=== PATIENT | male | born 1995 | race Caucasian/White ===

== ENCOUNTER 2018-01-10 16:09 | Emergency (ER) | payer BC, OTHER ==
[2018-01-10 16:14] VITALS: BP 155/65; PULSE 98; TEMP 98.5; BMI 20.3
--- NOTE | 2018-01-10 16:23 | PDOC ---
History of Present Illness - General History Source: Patient Exam Limitations: No Limitations <Kaylyn Mello - Last Filed: 01/10/18 16:41> - General History Source: Patient Exam Limitations: No Limitations - History of Present Illness Initial Comments: 01/10/18 17:08 The patient is a 22-year-old male, with a significant past medical history of anxiety, ADHD, PVCs, who presents to the ED because the patient woke up today and his heart was racing. He reports drinking a significant amount of alcohol last night and states that he woke up this morning shaking and nauseous. he reports feeling disoriented and anxious. He denies experiencing these symptoms in the past after a night out drinking. He also reports having a headache this morning that has now resolved. He denies any recent drug use. The patient has been eating and drinking normally. The patient denies any fever, chills, vomiting, diarrhea, or abdominal pain. He denies any chest pain or shortness of breath. Allergies: NKA Surgical History: throat cyst removal Social History: Denies any tobacco or drug use. <Palmira De Leon - Last Filed: 01/10/18 17:12> - General Chief Complaint: Lightheaded Stated Complaint: LIGHTHEADED, NAUSEA, FEELS HEART RACING Time Seen by Provider: 01/10/18 16:12 Past History - Past Medical History Cardiac Disorders: Yes (PVC'S) COPD: No - Immunization History Td Vaccination: Yes - Suicide/Smoking/Psychosocial Hx Smoking Status: No Smoking History: Never smoked Have you smoked in the past 12 months: No Number of Cigarettes Smoked Daily: 0 Information on smoking cessation initiated: No Hx Alcohol Use: (social) Drug/Substance Use Hx: No <Kaylyn Mello - Last Filed: 01/10/18 16:41> <Palmira De Leon - Last Filed: 01/10/18 17:12> - Past Medical History Allergies/Adverse Reactions: Allergies Allergy/AdvReac Type Severity Reaction Status Date / Time No Known Allergies Allergy Verified 01/10/18 16:10 Home Medications: Ambulatory Orders Ondansetron HCl [Zofran] 4 mg PO BID PRN #6 tablet 01/10/18 Review of Systems - Review of Systems Able to Perform ROS?: Yes Comments:: 01/10/18 17:09 GENERAL/CONSTITUTIONAL: (+)Shaking, anxious. No fever or chills. No weakness. HEAD, EYES, EARS, NOSE AND THROAT: No change in vision. No ear pain or discharge. No sore throat. CARDIOVASCULAR: (+)palpitations. No chest pain or shortness of breath. RESPIRATORY: No cough, wheezing, or hemoptysis. GASTROINTESTINAL: (+)Nausea. No vomiting, diarrhea or constipation. GENITOURINARY: No dysuria, frequency, or change in urination. MUSCULOSKELETAL: No joint or muscle swelling or pain. No neck or back pain. SKIN: No rash NEUROLOGIC: No headache, vertigo, loss of consciousness, or change in strength/ sensation. ENDOCRINE: No increased thirst. No abnormal weight change. HEMATOLOGIC/LYMPHATIC: No anemia, easy bleeding, or history of blood clots. ALLERGIC/IMMUNOLOGIC: No hives or skin allergy. <Palmira De Leon - Last Filed: 01/10/18 17:12> *Physical Exam - Vital Signs Last Vital Signs Temp Pulse Resp BP Pulse Ox 98.5 F 98 H 18 155/65 98 01/10/18 16:10 01/10/18 16:10 01/10/18 16:10 01/10/18 16:10 01/10/18 16:10 <Kaylyn Mello - Last Filed: 01/10/18 16:41> - Vital Signs Last Vital Signs Temp Pulse Resp BP Pulse Ox 98.5 F 98 H 18 155/65 98 01/10/18 16:10 01/10/18 16:10 01/10/18 16:10 01/10/18 16:10 01/10/18 16:10 - Physical Exam Comments: 01/10/18 17:12 GENERAL: The patient is in no acute distress. HEAD: Normal with no signs of trauma. EYES: PERRLA, EOMI, sclera anicteric, conjunctiva clear. ENT: Ears normal, nares patent, oropharynx clear without exudates. Moist mucous membranes. NECK: Normal range of motion, supple without lymphadenopathy, JVD, or masses. LUNGS: Breath sounds equal, clear to auscultation bilaterally. No wheezes, and no crackles. HEART:Regular rate and rhythm, normal S1 and S2 without murmur, rub or gallop. ABDOMEN: Soft, nontender, normoactive bowel sounds. No guarding, no rebound. No masses palpable. EXTREMITIES: Normal range of motion, no edema. No clubbing or cyanosis. No erythema, or tenderness. NEUROLOGICAL: Cranial nerves II through XII grossly intact. Normal speech. No focal neurological deficits. MUSCULOSKELETAL: Back non-tender to palpation, no CVA tenderness SKIN: Warm, Dry, normal turgor, no rashes or lesions noted. <Palmira De Leon - Last Filed: 01/10/18 17:12> ED Treatment Course - Medications Given in the ED: ED Medications Discontinued Medications Generic Name Dose Route Start Last Admin Trade Name Junior PRN Reason Stop Dose Admin Ondansetron HCl 4 mg 01/10/18 16:35 01/10/18 16:39 Zofran - PO 01/10/18 16:36 4 mg ONCE ONE Administration <Palmira De Leon - Last Filed: 01/10/18 17:12> Medical Decision Making - Medical Decision Making 01/10/18 16:41 josey presents to the ER with his father due to nausea and feeling like his heart is racing He went out drinking last night Tells me that he drank a lot (unable to give an exact quantity, but states it was double digits) The awoke this am with a headache which has resolved He has noted nausea, no vomiting Tolerating foods and liquids He has had the sensation that his heart is racing and he feels anxious No chest pain On examination: Pt appears anxious RRR, no murmur Lungs are clear Will do EKG Will give zofran for nausea Will discharge to home WKGL SR, rate of 90 bpm, axis nml, intervals nml, QTc = 420ms No st elevations or depressions T wave flattening in aVL <Kaylyn Mello - Last Filed: 01/10/18 16:41> *DC/Admit/Observation/Transfer - Discharge Dispostion Decision to Admit order: No <Kaylyn Mello - Last Filed: 01/10/18 16:41> - Attestations Scribe Attestion: 01/10/18 17:12 Documentation prepared by Palmira De Leon, acting as medical equipment repairer for Kaylyn Mello MD. <Palmira De Leon - Last Filed: 01/10/18 17:12> Diagnosis at time of Disposition: Nausea - Discharge Dispostion Disposition: HOME Condition at time of disposition: Stable - Prescriptions Prescriptions: Ondansetron HCl [Zofran] 4 mg PO BID PRN #6 tablet PRN Reason: Nausea - Patient Instructions Printed Discharge Instructions: DI for Nausea -- Adult Additional Instructions: Thanks for coming in to the ER Please take medications for nausea only if you need it Please come back to the ER if you develop any new symptoms that concern you Stay hydrated
[2018-01-10] MEDS ORDERED: ONDANSETRON 4 MG TABLET PO ONE (16:35)
[2018-01-10] MEDS ORDERED: ONDANSETRON *ODT* 4 MG TABLET ONE (16:37)
--- NOTE | 2018-01-12 22:09 | EKG ---
Test Reason : Blood Pressure : / mmHG Vent. Rate : 090 BPM Atrial Rate : 090 BPM P-R Int : 154 ms QRS Dur : 090 ms QT Int : 344 ms P-R-T Axes : 077 082 065 degrees QTc Int : 420 ms NORMAL SINUS RHYTHM POSSIBLE LEFT ATRIAL ENLARGEMENT BORDERLINE ECG NO PREVIOUS ECGS AVAILABLE Confirmed by MARJAN MORSE, CHAYA ([id number]) on 01/12/2018 10:09:29 PM Referred By: DR MACIAS Confirmed By:CHAYA PHILLIP MD
== END 2018-01-10 17:21 | disposition home or self-care (01) ==
LOC: FER 16:09
DX: R41.0 Disorientation, unspecified (principal); R11.0 Nausea; F90.9 Attention-deficit hyperactivity disorder, unspecified type; I49.3 Ventricular premature depolarization
CPT/HCPCS: 93005; 99282-25